=== PATIENT | female | born 1985 | race Caucasian/White ===

== ENCOUNTER 2017-05-09 07:29 | Emergency (ER) | payer OTHER ==
--- NOTE | ~2017-05-09 | EKG ---
PATIENT: BANDAR AMADOR UNIT #: [id number] Ventricular Rate: 79 BPM Atrial Rate: 79 BPM P-R Interval: 144 ms QRS Duration: 90 ms Q-T Interval: 390 ms QTC Calculation(Bezet): 447 ms P [place]: 60 degrees Calculated R [place]: 15 degrees Calculated T [place]: 6 degrees Diagnosis Line: Normal sinus rhythm Diagnosis Line: Normal ECG Diagnosis Line: No previous ECGs available Diagnosis Line: Confirmed by HENRI DESAI MD ([id number]) on 05/10/2017 Diagnosis Line: 5:41:06 AM INTERPRETING MD: LLOYD CASE
[~2017-05-09 07:29] MED LIST: BACTRIM DS TABL1 TA1 PO; CLARITIN10 M1 PO; DICLOFENAC PO; FLEXERIL10 MG PO; FLONASE16 GM; LORTAB ELIXIR15 ML PO; NO MEDICATIONS; PHENERGAN25 MG PO; ULTRAM PO; ZITHROMAX1 G/PKT PO
[2017-05-09 08:14] LABS: URINE SOURCE CLEAN CATCH
[2017-05-09 08:22] LABS: BASOPHIL# 0.1 X10e3 (0-0.3); BASOPHIL% 0.6 % (0-2.5); EOSINOPHIL# 0.3 X10e3 (0-0.7); EOSINOPHIL% 3.5 % (0.0-7.0); HEMATOCRIT 37.7 % (35.0-45.0); HEMOGLOBIN 12.6 gm/dL (12.0-16.0); LYMPHOCYTE# 2.8 X10e3 (1.0-3.5); LYMPHOCYTE% 29.1 % (17.0-45.0); MEAN CELL VOLUME 90.8 FL (83-96); MEAN CORPUSCULAR HEMOGLOBIN 30.3 PG (28-34); MEAN CORPUSCULAR HGB CONC 33.4 g/dL (30-36); MEAN PLATELET VOLUME 9.3 FL (6.5-11.5); MONOCYTE# 0.8 X10e3 (0-1.0); MONOCYTE% 8.1 % (3.0-12.0); NEUTROPHIL# 5.6 X10e3 (1.5-7.1); NEUTROPHIL% 58.7 % (40-75); PLATELET COUNT 305 X10e3 (140-420); RED BLOOD COUNT 4.15 X10e (3.90-5.30); RED CELL DISTRIBUTION WIDTH 13.4 % (11.0-15.5); WHITE BLOOD COUNT 9.6 X10e3 (4.0-10.5)
[2017-05-09 08:31] LABS: DIFF IND NO
[2017-05-09 08:36] LABS: U HYALINE CASTS AUWI 0-2 /[LPF]; URBCS1 AUWI 0-2 /[HPF] (0-2); URINE APPEARANCE CLEAR; URINE BACTERIA AUWI NEG (NEGATIVE); URINE BILIRUBIN NEG (NEG); URINE BLOOD NEG (NEG); URINE COLOR YELLOW; URINE GLUCOSE NEG (NEG); URINE KETONE NEG (NEG); URINE LEUKOCYTE ESTERASE TRACE (NEG); URINE NITRATE NEG (NEG); URINE PROTEIN NEG (NEG); URINE SPECIFIC GRAVITY 1.009 (1.003-1.035); URINE SQUAMOUS EPITHELIAL CELL OCC /[HPF]; URINE UROBILINOGEN 0.2 MG/DL (NEG)
[2017-05-09 08:38] LABS: CULTURE INDICATED? NO
[2017-05-09 08:47] LABS: ALBUMIN SERUM 3.9 g/dL (3.5-5.0); BILIRUBIN, DIRECT 0.1 mg/dL (0.0-0.2); BILIRUBIN,INDIRECT 0.3 mg/dL (0.0-0.9); BILIRUBIN,TOTAL 0.4 mg/dL (0.2-2.0); BUN/CREATININE RATIO 18.57; CALCIUM SERUM 9.2 mg/dL (8.4-10.2); CREATININE SERUM 0.7 mg/dL (0.6-1.4); GLOM FILT RATE Estimated 114.6 mL/min (>60); POTASSIUM 3.6 mmol/L (3.5-5.1); PROTEIN TOTAL SERUM 7.5 g/dL (6.0-8.3)
[2017-06-10] MEDS ORDERED: HYDROCHLOROTHIA25 MG PO (10:01)
== END 2017-05-09 09:35 | disposition home or self-care (01) ==
LOC: CED 07:29
PROVIDERS: Nurse Practitioner
DX: R42 Dizziness and giddiness (principal); R11.2 Nausea with vomiting, unspecified; I10 Essential (primary) hypertension; Z98.51 Tubal ligation status
CPT/HCPCS: 36415; 80048; 80076; 81003; 82947; 84703; 85025; 87651; 93005; 96374; 99284; J2405

== ENCOUNTER → 2017-05-11 | Outpatient (CLI) | payer OTHER ==
[~2017-05-11] MED LIST changes: +HYDROCHLOROTHIA25 MG PO
== END | disposition home or self-care (01) ==
LOC: CBAR 14:37
DX: Z01.812 Encounter for preprocedural laboratory examination (principal); E66.01 Morbid (severe) obesity due to excess calories
CPT/HCPCS: 36415; 84443; 86677; G0463

== ENCOUNTER → 2017-06-10 | Outpatient (CLI) | payer OTHER ==
--- NOTE | ~2017-06-10 | CR97 ---
[facility] A Service of [facility] & [facility] RADIOLOGY TEXT RESULTS PATIENT: BANDAR AMADOR LOCATION: [facility] : 85 UNIT #: [id number] AGE: [address]: Bony Medel III, MD SEX: F ORDER DR: [id number] [facility] [address] [place], [place] [address] [id number] O MR#: [id number] Acc #: [id number] NAME: BANDAR AMADOR : 1985 SEX: F STUDY DATE/TIME: 06/10/2017 8:44 UNIT: [facility] ROOM: STUDY DESCRIPTION: CR Esophagram Attending Physician: Bony Medel III, M.D. Referring Physician: Bony Medel III, M.D. Ordering Physician: Bony Medel III, M.D. Primary Care Physician: Primary Care Physician No MEDICAL IMAGING REPORT This report is preliminary unless electronic signature is present EXAM Single contrast barium esophagram. INDICATIONS Preoperative examination prior to laparoscopic gastric banding procedure as well as shortness of breath with activity. TECHNIQUE The patient was administered thin barium and multiple fluoroscopic images were obtained. The thoracic esophagus was of normal caliber with no evidence of stricture or mass lesion, no hiatal hernia was seen. Esophageal motility is within normal limits. No reflux was identified. Total fluoroscopy time was 0.3 minutes and a total of 9 fluoroscopic images were obtained. IMPRESSION Normal single contrast barium esophagram. Dictated by... Ana Figueroa M.D. THIS IS AN ELECTRONICALLY VERIFIED REPORT Ana Figueroa M.D. at 06/13/2017 5:06 PM WALTER/paco TD: 06/13/2017 13:31 JOB #: [id number] MEDICAL IMAGING REPORT Page 1 of 1 COPY
--- NOTE | ~2017-06-10 | EKG ---
PATIENT: BANDAR AMADOR UNIT #: [id number] Ventricular Rate: 83 BPM Atrial Rate: 83 BPM P-R Interval: 146 ms QRS Duration: 90 ms Q-T Interval: 400 ms QTC Calculation(Bezet): 470 ms P [place]: 62 degrees Calculated R [place]: 15 degrees Calculated T [place]: 1 degrees Diagnosis Line: Normal sinus rhythm Diagnosis Line: Septal infarct , age undetermined Diagnosis Line: Abnormal ECG Diagnosis Line: No previous ECGs available Diagnosis Line: Confirmed by CORBY ALVARENGA MD ([id number]) on Diagnosis Line: 06/10/2017 2:47:00 PM INTERPRETING MD: LYLE CASE
--- NOTE | ~2017-06-10 | CR63 ---
[facility] A Service of [facility] & [facility] RADIOLOGY TEXT RESULTS PATIENT: BANDAR AMADOR LOCATION: [facility] : 85 UNIT #: [id number] AGE: [address]: Bony Medel III, MD SEX: F ORDER DR: [id number] [facility] [address] [facility] [place], [place] [address] [id number] O MR#: [id number] Acc #: [id number] NAME: BANDAR AMADOR : 1985 SEX: F STUDY DATE/TIME: 06/10/2017 8:38 UNIT: [facility] ROOM: STUDY DESCRIPTION: CR Chest 2 View Attending Physician: Bony Medel III, M.D. Referring Physician: Bony Medel III, M.D. Ordering Physician: Bony Medel III, M.D. Primary Care Physician: No Primary Care Physician MEDICAL IMAGING REPORT This report is preliminary unless electronic signature is present EXAM AP and lateral chest. INDICATIONS Preop chest x-ray for Lap-Band surgery. COMPARISON 04/22/2011 FINDINGS Lungs are well expanded and clear. Heart size is normal. Visualized osseous structures are unremarkable. IMPRESSION Negative chest. Dictated by... Mor Willett M.D. THIS IS AN ELECTRONICALLY VERIFIED REPORT Mor Willett M.D. at 06/12/2017 9:05 AM CARLO/ernesto TD: 06/10/2017 12:47 JOB #: [id number] MEDICAL IMAGING REPORT Page 1 of 1 COPY
[2017-06-10 09:51] LABS: HEMATOCRIT 37.1 % (35.0-45.0); HEMOGLOBIN 12.5 gm/dL (12.0-16.0); MEAN CELL VOLUME 89.9 FL (83-96); MEAN CORPUSCULAR HEMOGLOBIN 30.3 PG (28-34); MEAN CORPUSCULAR HGB CONC 33.6 g/dL (30-36); MEAN PLATELET VOLUME 8.8 FL (6.5-11.5); RED BLOOD COUNT 4.13 X10e (3.90-5.30); RED CELL DISTRIBUTION WIDTH 13.1 % (11.0-15.5); WHITE BLOOD COUNT 8.7 X10e3 (4.0-10.5)
[2017-06-10 10:39] LABS: ALBUMIN SERUM 3.8 g/dL (3.5-5.0); BILIRUBIN,TOTAL 0.3 mg/dL (0.2-2.0); BUN/CREATININE RATIO 18.75; CALCIUM SERUM 9.6 mg/dL (8.4-10.2); CREATININE SERUM 0.8 mg/dL (0.6-1.4); GLOM FILT RATE Estimated 97.6 mL/min (>60); POTASSIUM 4.1 mmol/L (3.5-5.1); PROTEIN TOTAL SERUM 7.2 g/dL (6.0-8.3)
== END | disposition home or self-care (01) ==
LOC: CRAD 08:16 → CAMB 10:30
PROVIDERS: Surgery
DX: Z01.818 Encounter for other preprocedural examination (principal)
CPT/HCPCS: 36415; 71020; 74220; 80053; 80061; 84443; 85027; 93005

== ENCOUNTER → 2017-06-22 | Day surgery (SDC) | payer OTHER ==
--- NOTE | ~2017-06-22 | OR ---
Unit #: [id number] #: [id number] Patient: BANDAR AMADOR [id number] [facility] [address]. [place], [place] [address] [id number] O MR#: [id number] NAME: BANDAR AMADOR ROOM: Date of Procedure: 06/22/2017 Admission Date: 06/22/2017 Surgeon: Bony Medel III, M.D. : 1985 Attending Physician: Bony Medel III, M.D. Primary Care Physician: Generic Doctor Not In System OPERATIVE REPORT PREOPERATIVE DIAGNOSIS Chronic morbid obesity. POSTOPERATIVE DIAGNOSIS Chronic morbid obesity. SECONDARY DIAGNOSIS Anterior paraesophageal hernia. PROCEDURE PERFORMED Laparoscopic adjustable gastric banding (AP standard with regular port and laparoscopic paraesophageal hernia repair). PROCESSING TECHNOLOGIST Dr. Rigo Silva. SPECIMENS None. COMPLICATIONS None apparent. ESTIMATED BLOOD LOSS Minimal. ANESTHESIA General endotracheal tube anesthesia. INDICATIONS FOR PROCEDURE This is a 32-year-old lady, who has chronic morbid obesity with a BMI of 51 and associated comorbidities of hypertension. She has been through the bariatric program at [facility] and understands the risks and benefits of the procedure. DESCRIPTION OF PROCEDURE After consent was obtained, including the risks and benefits of slippage, erosion, port dysfunction, and possible failure of weight loss due to noncompliance, the patient was taken to the operating room and placed in the supine position. General anesthetic was administered and the abdomen was prepped and draped in standard surgical fashion. I began by making a 2 cm incision just above and to the left of the Unit #: [id number] #: [id number] Patient: BANDAR AMADOR umbilicus. I used a Visiport to enter the peritoneal cavity without any difficulty. C02 pneumoperitoneum was then established. Next, I placed a 5 mm port in the right upper quadrant, a 5 mm Eneida liver retractor in the subxiphoid region to provide exposure of the gastroesophageal junction. Next, a 10 mm port was placed in the left upper quadrant and a 5 mm port was placed in the left lateral subcostal region. I began by performing an examination of the GE junction to evaluate for a hiatal hernia. We then scored the peritoneal attachments overlying the angle of His. I then opened up the clear space in the gastrohepatic ligament, and then using 2 blunt graspers, I identified the small fat pad crossing over the right crura. I swept the fat anterior to the crura off the crura and using the pars flaccida, I created a retrogastric tunnel where the blunt grasper exited at the angle of His. Once I had made this tunnel safely, I then inserted an Allergan AP band into the abdominal cavity. This adjustable gastric band was then place around the upper part of the stomach and fastened and buckled anteriorly. We then tacked the lateral fundus over the band to the proximal pouch with 2 interrupted 0 Ethibond sutures. I then used a third stitch to imbricate the excess anterior stomach by going from the lesser curvature up towards where the last stitch was placed. We then had excellent hemostasis. I removed the Eneida liver retractor. We then removed the port tubing through the initial port incision. The rest of the ports were removed, and the pneumoperitoneum was released. I then left a small tail on the tubing. We then attached the port to the excess band tubing. We placed a piece of Prolene mesh along the back side of the port and used a Prolene stitch to anchor this mesh in place. We then trimmed the excess mesh so that just a small footprint of mesh was in place behind the port. I then inserted the tubing back into the abdominal cavity, and we placed the port into a small pocket that was made just inferior to where our initial port incision was made. The mesh was in direct contact with the fascia, and this will scar in place to hold the port in place. We then injected all the port sites with 0.25% plain Marcaine, and I reapproximated the skin edges with interrupted 4-0 Vicryl subcuticular sutures. Steri-strips were then applied. The patient tolerated the procedure without any problems and returned to the recovery room in stable condition. ADDENDUM After exposure of the GE junction, the patient was noted to have a small to medium size anterior paraesophageal hernia. I scored the phrenoesophageal ligament, reduced the hernia defect and after identifying both the right and left crura, I reapproximated the defect with an interrupted 0 Ethibond [id number]-ky-jdgpt suture. I then proceed with the case as listed above. Dictated by... Vincynes Medel III, M.D. VCL/alfred TD: 06/23/2017 13:06 JOB #: [id number] CC: Lena Flaherty M.D. Unit #: [id number] #: [id number] Patient: BANDAR AMADOR OPERATIVE REPORT Page 1 of 1 X Bony Medel III, MD PROCEDURE OPERATIVE NOTE
--- NOTE | ~2017-06-22 | CR7 ---
[facility] A Service of [facility] & [facility] RADIOLOGY TEXT RESULTS PATIENT: BANDAR AMADOR LOCATION: [facility] : 85 UNIT #: [id number] AGE: [address]: Bony Medel III, MD SEX: F ORDER DR: [id number] [facility] [address]. [place], [place] [address] [id number] O MR#: [id number] Acc #: [id number] NAME: BANDAR AMADOR : 1985 SEX: F STUDY DATE/TIME: 06/22/2017 13:33 UNIT: [facility] ROOM: STUDY DESCRIPTION: CR Abdomen Single AP View Attending Physician: Bony Medel III, M.D. Ordering Physician: Bony Medel III, M.D. Primary Care Physician: Generic Doctor Not In System MEDICAL IMAGING REPORT This report is preliminary unless electronic signature is present EXAM KUB 06/22/2017 INDICATIONS Gastric band placement today. Morbid obesity. Abdominal pain. FINDINGS Supine view of the abdomen was obtained. Gastric band is present with a phi angle of 48 degrees. Port is in the left mid abdomen. Bowel gas pattern is normal. IMPRESSION Gastric band in place with a phi angle of 48 degrees. Dictated by... Flakito Calderon Jr., M.D. THIS IS AN ELECTRONICALLY VERIFIED REPORT Flakito Calderon Jr., M.D. at 06/24/2017 2:28 PM LEEANN/danny TD: 06/22/2017 20:20 JOB #: [id number] MEDICAL IMAGING REPORT Page 1 of 1 COPY
== END | disposition home or self-care (01) ==
LOC: CSUR 08:26
DX: E66.01 Morbid (severe) obesity due to excess calories (principal); K44.9 Diaphragmatic hernia without obstruction or gangrene; K21.9 Gastro-esophageal reflux disease without esophagitis; I10 Essential (primary) hypertension; Z88.8 Allergy status to other drugs, medicaments and biological substances; Z79.899 Other long term (current) drug therapy; Z90.49 Acquired absence of other specified parts of digestive tract; Z68.43 Body mass index [BMI] 50.0-59.9, adult; Z98.51 Tubal ligation status
CPT/HCPCS: 74000; 82947; 84703; C1781; J0330; J0690; J1100; J1650; J1885; J2250; J2310; J2405; J2710; J3010; L8699